=== PATIENT | female | born 1960 | race Caucasian/White ===

== ENCOUNTER 2017-10-08 09:52 | Emergency (ER) | payer MEDICARE, MEDICAID ==
--- NOTE | 2017-10-08 10:16 | Emergency Department Record ---
History of Present Illness - General Chief complaint: Nausea, Vomiting, Diarrhea Stated complaint: DIARRHEA Time Seen by Provider: 10/08/17 10:09 Source: Patient, RN notes reviewed Mode of Arrival: Ambulatory - History of Present Illness Initial comments: diarrhea times two today and only a small amount of mucous. yesterday 5 stools and this started 6 days ago. Patient is drinking liquids and she is weak. No food today yesterday ate crackers broth and applesauce. Primary is Jami Espinal MD complaint: Diarrhea - Related Data Allergies Allergy/AdvReac Type Severity Reaction Status Date / Time ceftriaxone sodium Allergy Intermediate RASH Unverified 08/26/17 08:45 [From Rocephin] ciprofloxacin [From Cipro] Allergy Intermediate MUSCLE PAIN Unverified 08/26/17 08:45 ciprofloxacin HCl Allergy Intermediate MUSCLE PAIN Unverified 08/26/17 08:45 [From Cipro] doxycycline [DOXYCYCLINE] Allergy Intermediate RASH Unverified 08/26/17 08:45 vancomycin HCl Allergy Intermediate RASH Unverified 08/26/17 08:45 [From VANCOCIN] clindamycin Allergy Mild stomach Unverified 10/08/17 09:30 issues metronidazole [From Flagyl] Allergy Unknown PT UNSURE Unverified 08/26/17 08:45 OF REACTION Travel Screening - Travel/Exposure Within Last 30 Days Have you traveled within the last 30 days?: No - Travel/Exposure Within Last Year Have you traveled outside the [place] in the last year?: No - Additonal Travel Details Have you been exposed to anyone with a communicable illness?: No - Travel Symptoms Symptom Screening: Diarrhea Review of Systems Reviewed: No additional complaints except as noted below Constitutional: Reports: As per HPI. Denies: Chills, Fever, Malaise, Night sweats, Weakness, Weight change Eyes: Reports: As per HPI. Denies: Eye discharge, Eye pain, Photophobia, Vision change ENT: Reports: As per HPI. Denies: Congestion, Dental pain, Ear pain, Epistaxis , Hearing loss, Throat pain Respiratory: Reports: As per HPI. Denies: Cough, Dyspnea, Hemoptysis, Stridor, Wheezes Cardiovascular: Reports: As per HPI. Denies: Arrhythmia, Chest pain, Dyspnea on exertion, Edema, Murmurs, Orthopnea, Palpitations, Paroxysmal nocturnal dyspnea, Rheumatic Fever, Syncope Endocrine: Reports: As per HPI. Denies: Fatigue, Heat or cold intolerance, Polydipsia, Polyuria Gastrointestinal: Reports: As per HPI, Diarrhea. Denies: Abdominal pain, Constipation, Hematemesis, Hematochezia, Melena, Nausea, Vomiting Genitourinary: Reports: As per HPI. Denies: Abnormal menses, Discharge, Dyspareunia, Dysuria, Frequency, Hematuria, Incontinence, Retention, Urgency Musculoskeletal: Reports: As per HPI. Denies: Arthralgia, Back pain, Gout, Joint swelling, Myalgia, Neck pain Skin: Reports: As per HPI. Denies: Bruising, Change in color, Change in hair/ nails, Lesions, Pruritus, Rash Neurological: Reports: As per HPI. Denies: Abnormal gait, Confusion, Headache, Numbness, Paresthesias, Seizure, Tingling, Tremors, Vertigo, Weakness Psychiatric: Reports: As per HPI. Denies: Anxiety, Auditory hallucinations, Depression, Homicidal thoughts, Suicidal thoughts, Visual hallucinations Hematological/Lymphatic: Reports: As per HPI. Denies: Anemia, Blood Clots, Easy bleeding, Easy bruising, Swollen glands Past Medical History - SOCIAL HISTORY Smoking Status: Current every day smoker Alcohol Use: None Drug Use: None - RESPIRATORY Hx Respiratory Disorders: Yes - CARDIOVASCULAR Hx Cardio Disorders: No - NEURO Hx Neuro Disorders: Yes Hx Headaches: Yes Hx of Migraines: Yes (none recent) - GI Hx GI Disorders: Yes Hx of Polyps: Yes - Hx Genitourinary Disorders: No Comment:: LMP 2013 - ENDOCRINE Hx Endocrine Disorders: Yes Hx Thyroid Disease: Yes - MUSCULOSKELETAL Hx Musculoskeletal Disorders: Yes Comment:: occas back pain - PSYCH Hx Psych Problems: Yes Hx Anxiety: Yes Hx Depression: Yes - HEMATOLOGY/ONCOLOGY Hx Hematology/Oncology Disorders: No Family Medical History Any Significant Family History?: No Hx Cancer: Mother, Brother/Sister *Cancer Comment: Mom-liver ca, Sister-esophageal ca Hx Kidney Disease: Father Hx Resp Disorders: Brother/Sister Physical Exam - General General Appearance: Alert, Oriented x3, Cooperative, No acute distress - Head Head exam: Normal inspection - Eye Eye exam: Normal appearance, PERRL Pupils: Normal accommodation - ENT ENT exam: Normal exam, Mucous membranes moist, Normal external ear exam, Normal orophraynx, TM's normal bilaterally Ear exam: Normal external inspection. negative: External canal tenderness Nasal Exam: Normal inspection. negative: Discharge, Sinus tenderness Mouth exam: Normal external inspection, Tongue normal Teeth exam: Normal inspection. negative: Dental caries Throat exam: Normal inspection. negative: Tonsillar erythema, Tonsillar exudate - Neck Neck exam: Normal inspection, Full ROM. negative: Tenderness - Respiratory Respiratory exam: Normal lung sounds bilaterally. negative: Respiratory distress - Cardiovascular Cardiovascular Exam: Regular rate, Normal rhythm, Normal heart sounds - GI/Abdominal GI/Abdominal exam: Soft, Normal bowel sounds. negative: Tenderness - Rectal Rectal exam: Deferred - exam: Deferred - Extremities Extremities exam: Normal inspection, Full ROM, Normal capillary refill. negative: Tenderness - Back Back exam: Reports: Normal inspection, Full ROM. Denies: Muscle spasm, Rash noted, Tenderness - Neurological Neurological exam: Alert, Normal gait, Oriented X3, Reflexes normal - Psychiatric Psychiatric exam: Normal affect, Normal mood - Skin Skin exam: Dry, Intact, Normal color, Warm Course Vital Signs 10/08/17 09:58 Temperature 97.8 F Pulse Rate 99 H Respiratory 16 Rate Blood Pressure 107/57 Pulse Ox 99 Medical Decision Making - Lab Data Result diagrams: 10/08/17 10:40 10/08/17 10:40 Disposition Clinical Impression: Diarrhea Qualifiers: Diarrhea type: unspecified type Qualified Code(s): R19.7 - Diarrhea, unspecified Disposition: Home, Self-Care Condition: (1) Good Instructions: Gastroenteritis (ED) Additional Instructions: clear liquids and gradually increase diet eat yogurt follow up with Jami in 2 -5 days Forms: Patient Portal Access Time of Disposition: 11:39 Quality - Quality Measures Quality Measures: N/A - Blood Pressure Screening Does Patient Have Any of the Following: No Blood Pressure Classification: Normal BP Reading Systolic Measurement: 107 Diastolic Measurement: 57 Screening for High Blood Pressure: < Normal BP, F/U Not Required > [G8783]
[2017-10-08] MEDS: 0.9 % SODIUM CHLORIDE 1,000 ML BAG IV ONE (10:35)
[2017-10-08] MEDS: ONDANSETRON HCL IV 4 MG/2 ML VIAL IV ONE (10:35)
[2017-10-08 10:51] LABS: BASO % 0.2 % (0-6); GRAN % 64.7 % (47-80); HEMATOCRIT 41.4 % (35.0-47.0); HEMOGLOBIN 13.9 gm/dl (11.6-16.0); LYMPH % 23.8 % (16-45); MEAN CELL VOLUME 88.7 fl (81-97); MEAN CORPUSCULAR HEMOGLOBIN 29.8 pg (27-33); MEAN CORPUSCULAR HGB CONC 33.6 g/dl (32-36); MEAN PLATELET VOLUME 9.2 fl (7.4-10.4); MONO % 9.3 % (0-9); PLATELET COUNT 170 K/uL (130-400); RED BLOOD COUNT 4.67 M/uL (3.80-5.40); RED CELL DISTRIBUTION WIDTH 12.5 % (11.5-14.5)
[2017-10-08 11:01] LABS: BLOOD UREA NITROGEN 14 mg/dL (6-20); CREATININE 0.7 mg/dL (0.5-0.9); EST GLOMERULAR FILTRATION RATE > 60 mL/min
[2017-10-08 11:04] LABS: GLUCOSE,RANDOM 88 mg/dL (74-109)
== END 2017-10-08 11:51 | disposition home or self-care (01) ==
LOC: ER 09:52
DX: R19.7 Diarrhea, unspecified (principal); R11.2 Nausea with vomiting, unspecified
CPT/HCPCS: 80048; 85025; 96361; 96374; 99284; J2405; J7030

== ENCOUNTER 2018-07-12 09:07 | Emergency (ER) | payer MEDICARE, MEDICAID ==
--- NOTE | 2018-07-12 09:28 | Emergency Department Record ---
History of Present Illness - General Chief complaint: Pain Stated complaint: PAIN R SIDE JAW UP INTO HEAD Time Seen by Provider: 07/12/18 09:12 Source: Patient, RN notes reviewed Mode of Arrival: Ambulatory - History of Present Illness Initial comments: patient has pain in the right lower gum area and it radiates into the right side of head. This started three days ago and the gum is slightly irritated and she has kat pain that radiates into her right head area and it lasts seconds Onset/Timin -: Days(s) Location: Right, Other History of Same: No Severity scale (1-10): 7 Quality: Sharp Consistency: Intermittent Improves with: Nothing Worsens with: Nothing Associated Symptoms: Denies other symptoms - Related Data Previous Rx's Medication Instructions Recorded Gabapentin [Neurontin] 100 mg PO DAILY #30 capsule 07/12/18 Naproxen [Naprosyn] 500 mg PO BID #30 tablet 07/12/18 Penicillin V Potassium 250 mg PO QID #40 tablet 07/12/18 Allergies Allergy/AdvReac Type Severity Reaction Status Date / Time ceftriaxone sodium Allergy Intermediate RASH Unverified 01/16/18 19:02 [From Rocephin] ciprofloxacin [From Cipro] Allergy Intermediate MUSCLE PAIN Unverified 01/16/18 19:02 ciprofloxacin HCl Allergy Intermediate MUSCLE PAIN Unverified 01/16/18 19:02 [From Cipro] doxycycline [DOXYCYCLINE] Allergy Intermediate RASH Unverified 01/16/18 19:02 vancomycin HCl Allergy Intermediate RASH Unverified 01/16/18 19:02 [From VANCOCIN] clindamycin Allergy Mild stomach Unverified 01/16/18 19:02 issues Travel Screening - Travel/Exposure Within Last 30 Days Have you traveled within the last 30 days?: No Review of Systems Reviewed: No additional complaints except as noted below Constitutional: Reports: As per HPI. Denies: Chills, Fever, Malaise, Night sweats, Weakness, Weight change Eyes: Reports: As per HPI. Denies: Eye discharge, Eye pain, Photophobia, Vision change ENT: Reports: As per HPI, Dental pain, Other (neuralgia type pain). Denies: Congestion, Ear pain, Epistaxis, Hearing loss, Throat pain Respiratory: Reports: As per HPI. Denies: Cough, Dyspnea, Hemoptysis, Stridor, Wheezes Cardiovascular: Reports: As per HPI. Denies: Arrhythmia, Chest pain, Dyspnea on exertion, Edema, Murmurs, Orthopnea, Palpitations, Paroxysmal nocturnal dyspnea, Rheumatic Fever, Syncope Endocrine: Reports: As per HPI. Denies: Fatigue, Heat or cold intolerance, Polydipsia, Polyuria Gastrointestinal: Reports: As per HPI. Denies: Abdominal pain, Constipation, Diarrhea, Hematemesis, Hematochezia, Melena, Nausea, Vomiting Genitourinary: Reports: As per HPI. Denies: Abnormal menses, Discharge, Dyspareunia, Dysuria, Frequency, Hematuria, Incontinence, Retention, Urgency Musculoskeletal: Reports: As per HPI. Denies: Arthralgia, Back pain, Gout, Joint swelling, Myalgia, Neck pain Skin: Reports: As per HPI. Denies: Bruising, Change in color, Change in hair/ nails, Lesions, Pruritus, Rash Neurological: Reports: As per HPI. Denies: Abnormal gait, Confusion, Headache, Numbness, Paresthesias, Seizure, Tingling, Tremors, Vertigo, Weakness Psychiatric: Reports: As per HPI. Denies: Anxiety, Auditory hallucinations, Depression, Homicidal thoughts, Suicidal thoughts, Visual hallucinations Hematological/Lymphatic: Reports: As per HPI. Denies: Anemia, Blood Clots, Easy bleeding, Easy bruising, Swollen glands Past Medical History - SOCIAL HISTORY Smoking Status: Current every day smoker Alcohol Use: None Drug Use: None - RESPIRATORY Hx Respiratory Disorders: Yes - CARDIOVASCULAR Hx Cardio Disorders: No - NEURO Hx Neuro Disorders: Yes Hx Headaches: Yes Hx of Migraines: Yes (none recent) - GI Hx GI Disorders: Yes Hx of Polyps: Yes - Hx Genitourinary Disorders: No Comment:: LMP 2013 - ENDOCRINE Hx Endocrine Disorders: Yes Hx Thyroid Disease: Yes - MUSCULOSKELETAL Hx Musculoskeletal Disorders: Yes Comment:: occas back pain - PSYCH Hx Psych Problems: Yes Hx Anxiety: Yes Hx Depression: Yes - HEMATOLOGY/ONCOLOGY Hx Hematology/Oncology Disorders: No Family Medical History Any Significant Family History?: Yes Hx Cancer: Mother, Brother/Sister *Cancer Comment: Mom-liver ca, Sister-esophageal ca Hx Kidney Disease: Father Hx Resp Disorders: Brother/Sister Physical Exam - General General Appearance: Alert, Oriented x3, Cooperative, No acute distress - Head Head exam: Normal inspection - Eye Eye exam: Normal appearance, PERRL Pupils: Normal accommodation - ENT ENT exam: Normal exam, Mucous membranes moist, Normal external ear exam, Normal orophraynx, TM's normal bilaterally Ear exam: Normal external inspection. negative: External canal tenderness Nasal Exam: Normal inspection. negative: Discharge, Sinus tenderness Mouth exam: Normal external inspection, Tongue normal Teeth exam: Normal inspection. negative: Dental caries Throat exam: Normal inspection. negative: Tonsillar erythema, Tonsillar exudate Image of Mouth/Teeth: 1 - teeth are gone and some areathema and it looks like maybe a remnant of a tooth is poking up from the gum - Neck Neck exam: Normal inspection, Full ROM. negative: Tenderness - Respiratory Respiratory exam: Normal lung sounds bilaterally. negative: Respiratory distress - Cardiovascular Cardiovascular Exam: Regular rate, Normal rhythm, Normal heart sounds - GI/Abdominal GI/Abdominal exam: Soft, Normal bowel sounds. negative: Tenderness - Rectal Rectal exam: Deferred - exam: Deferred - Extremities Extremities exam: Normal inspection, Full ROM, Normal capillary refill. negative: Tenderness - Back Back exam: Reports: Normal inspection, Full ROM. Denies: Muscle spasm, Rash noted, Tenderness - Neurological Neurological exam: Alert, Normal gait, Oriented X3, Reflexes normal - Psychiatric Psychiatric exam: Normal affect, Normal mood - Skin Skin exam: Dry, Intact, Normal color, Warm Course Vital Signs 07/12/18 09:12 Temperature 98.4 F Pulse Rate 83 Respiratory 16 Rate Blood Pressure 119/72 Pulse Ox 98 Disposition Clinical Impression: Gingivitis, Neuralgia Disposition: Home, Self-Care Condition: (1) Good Instructions: Gingivostomatitis (ED) Additional Instructions: follow up with Dentist next week follow up with family Dr next week to manage gabapentin and titrate it up as needed. will start at 100 mg daily and increase it 100mg every 3 days up to 300 mg Prescriptions: Gabapentin [Neurontin] 100 mg PO DAILY #30 capsule Naproxen [Naprosyn] 500 mg PO BID #30 tablet Penicillin V Potassium 250 mg PO QID #40 tablet Time of Disposition: 09:35 Quality - Quality Measures Quality Measures: N/A - Blood Pressure Screening Does Patient Have Any of the Following: No Blood Pressure Classification: Normal BP Reading Systolic Measurement: 119 Diastolic Measurement: 72 Screening for High Blood Pressure: < Normal BP, F/U Not Required > [G8787]
== END 2018-07-12 09:46 | disposition home or self-care (01) ==
LOC: ER 09:07
DX: K05.10 Chronic gingivitis, plaque induced (principal); G50.0 Trigeminal neuralgia; F17.210 Nicotine dependence, cigarettes, uncomplicated
CPT/HCPCS: 99282

== ENCOUNTER 2018-08-10 10:27 | Emergency (ER) | payer MEDICARE, MEDICAID ==
--- NOTE | 2018-08-10 11:16 | Emergency Department Record ---
History of Present Illness - General Chief Complaint: Chest Pain Stated Complaint: BURNING & PAIN IN RIB CAGE Time Seen by Provider: 08/10/18 11:10 Source: Patient Mode of Arrival: Ambulatory Limitations: No limitations - History of Present Illness Initial Comments: The patient is here due to 2 hours of epigastric discomfort that intermittently radiated up into her chest to her jaw. She denied any CP, SOB, GLYNN, or nausea with it. There was mild sweating at times per the patient. She felt the pain was heartburn so she took 2 TUMS and it helped a lot. The patient's only cardiac risk factor is tobacco use. MD Complaint: Other Onset/Timin -: Hour(s) Onset: During rest Pain Location: Epigastric Quality: Aching Consistency: Constant Improves With: Antacids Worsens With: Nothing Anginal Symptoms: Diaphoresis, Nausea Treatments Prior to Arrival: None - Related Data Home Medications Medication Instructions Recorded Confirmed Last Taken Gabapentin [Neurontin] 100 mg PO QHS 08/10/18 08/10/18 08/09/18 Previous Rx's Medication Instructions Recorded Omeprazole [Prilosec] 20 mg PO DAILY #14 08/10/18 Allergies Allergy/AdvReac Type Severity Reaction Status Date / Time ceftriaxone sodium Allergy Intermediate RASH Verified 08/10/18 11:10 [From Rocephin] ciprofloxacin [From Cipro] Allergy Intermediate MUSCLE PAIN Verified 08/10/18 11 :10 ciprofloxacin HCl Allergy Intermediate MUSCLE PAIN Verified 08/10/18 11:10 [From Cipro] doxycycline [DOXYCYCLINE] Allergy Intermediate RASH Verified 08/10/18 11:10 vancomycin HCl Allergy Intermediate RASH Verified 08/10/18 11:10 [From VANCOCIN] clindamycin Allergy Mild stomach Verified 08/10/18 11:10 issues Travel Screening - Travel/Exposure Within Last 30 Days Have you traveled within the last 30 days?: No - Travel/Exposure Within Last Year Have you traveled outside the [place] in the last year?: No - Additonal Travel Details Have you been exposed to anyone with a communicable illness?: No - Travel Symptoms Symptom Screening: None Review of Systems Constitutional: Denies: Chills, Fever Eyes: Denies: Eye discharge ENT: Denies: Congestion Respiratory: Denies: Cough, Dyspnea Past Medical History - SOCIAL HISTORY Smoking Status: Current every day smoker Alcohol Use: Occasional Drug Use: None - RESPIRATORY Hx Respiratory Disorders: Yes - CARDIOVASCULAR Hx Cardio Disorders: No - NEURO Hx Neuro Disorders: Yes Hx Headaches: Yes Hx of Migraines: Yes (none recent) - GI Hx GI Disorders: Yes Hx Reflux: Yes Hx of Polyps: Yes - Hx Genitourinary Disorders: No Comment:: LMP 2014 - ENDOCRINE Hx Endocrine Disorders: Yes Hx Thyroid Disease: Yes - MUSCULOSKELETAL Hx Musculoskeletal Disorders: Yes Comment:: occas back pain - PSYCH Hx Psych Problems: Yes Hx Anxiety: Yes Hx Depression: Yes - HEMATOLOGY/ONCOLOGY Hx Hematology/Oncology Disorders: No Family Medical History Any Significant Family History?: No Hx Cancer: Mother, Brother/Sister *Cancer Comment: Mom-liver ca, Sister-esophageal ca Hx Kidney Disease: Father Hx Resp Disorders: Brother/Sister Physical Exam - General General Appearance: Alert, Oriented x3, Cooperative, No acute distress - Head Head exam: Atraumatic, Normocephalic, Normal inspection - Eye Eye exam: Normal appearance, PERRL - ENT Throat exam: Normal inspection. negative: Tonsillar erythema, Tonsillar exudate - Neck Neck exam: Normal inspection, Full ROM. negative: Tenderness - Respiratory Respiratory exam: Normal lung sounds bilaterally. negative: Respiratory distress - Cardiovascular Cardiovascular Exam: Regular rate, Normal rhythm, Normal heart sounds. negative : Diastolic murmur, Systolic murmur - GI/Abdominal GI/Abdominal exam: Soft, Tenderness (There is mild epigastric tenderness that does reproduce the patient's pain.). negative: Guarding, Rebound, Rigid - Extremities Extremities exam: Normal inspection, Full ROM, Normal capillary refill. negative: Tenderness - Neurological Neurological exam: Alert, Normal gait. negative: Abnormal gait, Motor sensory deficit Course Vital Signs 08/10/18 11:03 Temperature 98.1 F Pulse Rate 76 Respiratory 18 Rate Blood Pressure 111/62 Pulse Ox 100 - Reevaluation(s) Reevaluation #1: The patient is doing a lot better at this time. Her pain is much improved and only very mild in the epigastric area. 08/10/18 12:03 Reevaluation #2: The patient is doing very well at this time. She denies any pain or discomfort. She is up walking with no difficulty. I did explain to her that our evaluation has all been WNL's. She is to see her PCP later this week for recheck and we will also put a consultation in to the Cardiology specialty clinic. 08/10/18 15:15 Medical Decision Making - Data Complexity MDM Data: Labs Ordered and/or Reviewed, EKG Ordered and/or Reviewed - Lab Data Result diagrams: 08/10/18 11:31 08/10/18 11:31 - EKG Data -: EKG Interpreted by Me EKG: No Acute Changes, Normal EKG Disposition Disposition: Discharge Clinical Impression: Gastritis Qualifiers: Gastritis type: unspecified gastritis Chronicity: unspecified Gastritis bleeding: without bleeding Qualified Code(s): K29.70 - Gastritis, unspecified, without bleeding Disposition: Home, Self-Care Condition: (2) Stable Instructions: Gastritis (ED) Additional Instructions: Please take the Prilosec as directed and please see your family doctor later this week for recheck. Please also see the Ice Cream Man in the Specialty Clinic later this week. Return to the ER for any worsening symptoms. Prescriptions: Omeprazole [Prilosec] 20 mg PO DAILY #14 Referrals: [facility] [Provider Group] Forms: Patient Portal Access Time of Disposition: 15:18 Quality - Quality Measures Quality Measures: N/A - Blood Pressure Screening View Details: Yes Does Patient Have Any of the Following: No Blood Pressure Classification: Normal BP Reading Systolic Measurement: 103 Diastolic Measurement: 53 Screening for High Blood Pressure: < Normal BP, F/U Not Required > [G8783]
[2018-08-10] MEDS ORDERED: SUCRALFATE 1 G/10 ML UD PO ONE (11:17)
[2018-08-10 11:43] LABS: BASO % 0.4 % (0-6); EOS % 3.3 % (0-6); GRAN % 54.7 % (47-80); HEMATOCRIT 39.7 % (35.0-47.0); HEMOGLOBIN 12.8 gm/dl (11.6-16.0); LYMPH % 31.3 % (16-45); MEAN CELL VOLUME 90.4 fl (81-97); MEAN CORPUSCULAR HEMOGLOBIN 29.2 pg (27-33); MEAN CORPUSCULAR HGB CONC 32.2 g/dl (32-36); MEAN PLATELET VOLUME 8.7 fl (7.4-10.4); MONO % 10.3 % (0-9); PLATELET COUNT 190 K/uL (130-400); RED BLOOD COUNT 4.39 M/uL (3.80-5.40); RED CELL DISTRIBUTION WIDTH 12.7 % (11.5-14.5); WHITE BLOOD COUNT W/O DIFF 5.5 K/uL (4.2-12.2)
[2018-08-10 11:56] LABS: BLOOD UREA NITROGEN 11 mg/dL (6-20); CREATININE 0.6 mg/dL (0.5-0.9); EST GLOMERULAR FILTRATION RATE > 60 mL/min
[2018-08-10 11:57] LABS: TOTAL PROTEIN 6.3 g/dL (6.6-8.7)
[2018-08-10 11:59] LABS: GLUCOSE,RANDOM 88 mg/dL (74-109)
[2018-08-10 12:01] LABS: ALBUMIN 4.1 g/dL (4.0-5.0); ALT/SGPT 25 U/L (<33); AST/SGOT 25 U/L (10.0-35.0)
[2018-08-10 12:02] LABS: ALKALINE PHOSPHATASE 86 U/L (35-104); BILIRUBIN,DIRECT < 0.2 mg/dL (0-0.3); CREATINE PHOSPHOKINASE 80 U/L (26-192); LIPASE 53 U/L (13-60)
[2018-08-10 12:04] LABS: CKMB 1.3 ng/mL (<3.77)
[2018-08-10] MEDS ORDERED: MAGNESIUM HYDROXIDE/AL HYDROX 30 ML, LIDOCAINE VISC 2% 15ML 15 ML PO ONE ×2 (12:04)
[2018-08-10 15:13] LABS: CKMB 1.2 ng/mL (<3.77)
== END 2018-08-10 15:31 | disposition home or self-care (01) ==
LOC: ER 10:27
DX: K29.70 Gastritis, unspecified, without bleeding (principal); R07.9 Chest pain, unspecified; R10.13 Epigastric pain; R11.0 Nausea; R61 Generalized hyperhidrosis; F17.210 Nicotine dependence, cigarettes, uncomplicated
CPT/HCPCS: 80048; 80076; 82550; 82553; 83690; 84484; 85025; 93005; 93010; 99284